=== PATIENT | female | born 1990 | race Caucasian/White ===

== ENCOUNTER 2021-06-15 07:10 | Inpatient (IN) | payer OTHER, SELFPAY ==
[2021-06-15] VITALS (34 sets, daily range): BP systolic 109–160; BP diastolic 56–72; PULSE 63–93; RESP 16; TEMP 36.9–37.5; O2SAT 84–97; BMI 37.5
[2021-06-15] MEDS: Lactated Ringers 1,000 ML 50 ML IV (07:45)
[2021-06-15 08:05] LABS: Absolute Neutrophil Count 8.4 X10^3/uL (2.0-7.7); Basophil# 0.03 X10^3/uL; Basophil% 0.3 % (0-1); Eosinophil# 0.04 X10^3/uL; Eosinophils% 0.4 % (0-5); Hematocrit 37.6 % (37-47); Hemoglobin 12.6 g/dL (12.0-15.0); Lymphocyte % 10.7 % (19-41); Mean Corp Hgb Conc 33.5 g/dL (32-36); Mean Corpuscular Hgb 29.4 pg (27.0-32.0); Mean Corpuscular Volume 87.6 fL (81-99); Mean Platelet Vol. 11.9 fl (6.2-12.0); Monocyte# 0.67 X10^3/uL; Monocyte% 6.5 % (0-10); NRBC Flagged by Analyzer 0 % (0-5); Neutrophil # 8.38 X10^3/uL (2.7-7.7); Neutrophil % 81.1 % (47-70); Platelet Count 199 K/mm3 (150-450); RBC Distribution Width CV 13.8 % (11.6-14.6); RBC Distribution Width SD 43.9 fl (35.1-43.9); Red Blood Count 4.29 M/mm3 (4.2-5.4); White Blood Count 10.3 K/mm3 (4.4-11.0)
[2021-06-15] MEDS: Oxytocin 30 units/NS 500 ml 30 UNITS/500 ML IV.SOLN IV (08:15)
--- NOTE | 2021-06-15 09:24 | PCM.HP.BLA ---
History and Physical Date of Admission: 06/15/21 Chief complaint: Induction of labor postdates History of present illness: 30-year-old G3, P2 at 41 weeks and 0 days with KERMIT: 06/08/2021 by LMP arrives for induction of labor postdates. Denies headache, visual changes, chest pain, shortness of breath, nausea vomiting, right upper quadrant pain. Patient states good movement. Obstetric history: G1: 39 weeks female 02/13/2011 G2: 40-week female 12/16/2015 G3: Current Past medical history: None Medications: vitamin Past surgical history: None Allergies: No known drug allergies Social history: Denies smoking, alcohol use, drug use Family history: Denies history DVT or PE Review of systems: Besides above pertinent positives a full review of systems was performed and found to be negative Physical exam: Vitals: Blood pressure 122/72 pulse 84 SPO2 97% on room air temp 98.4 General: Normal-appearing no acute distress HEENT: Normocephalic atraumatic no cervical of adenopathy Cardiac/respiratory: No use of accessory muscles, nonlabored breathing Abdomen: Soft, nontender, gravid Pelvic exam: Cervical exam 1.5/50/-3 AROM clear blood-tinged fluid Extremities: No peripheral edema normal peripheral pulses Psych: Normal affect normal demeanor nonpressured speech Labs: White blood cell count 10.3 hemoglobin 12.6 MetaGrip 37.6% platelets 199 Assessment plan: 30-year-old G3, P2 at 41 weeks 0 days for induction of labor postdates Admit labor and delivery CEFM Pitocin induction. AROM clear blood-tinged fluid GBS negative Rh- Desires immediate IUD Routine orders Anesthesia see
[2021-06-15] MEDS: Lactated Ringers 500 ML 999 ML IV (11:23)
[2021-06-15] MEDS: fentaNYL-bupivacaine (epidural) 100 ML BAG EPIDURAL (12:20)
--- NOTE | 2021-06-15 13:26 | PCM.PN.OB ---
Subjective Subjective Patient now comfortable with epidural Objective Data Objective Data Vital Signs: Vital Signs Temp Pulse BP Pulse Ox 99.3 F H 77 109/66 94 06/15/21 12:23 06/15/21 13:25 06/15/21 13:25 06/15/21 12:54 Weight: 192 lb Body Mass Index (BMI) 37.5 Intake & Output: Intake and Output for Last 24 Hours 06/13/21 06/14/21 06/15/21 23:59 23:59 23:59 Intake Total 707.50 / 707.50 Balance 707.50 / 707.50 Lab / Micro Data Result Diagrams: 06/15/21 07:45 Labs: Laboratory Results - last 24 hr 06/15/21 07:45: WBC 10.3, RBC 4.29, Hgb 12.6, Hct 37.6, MCV 87.6, MCH 29.4, MCHC 33.5, RDW Std Deviation 43.9, RDW Coeff of Isabel 13.8, Plt Count 199, MPV 11.9, Immature Gran % (Auto) 1.000 H, Neut % (Auto) 81.1 H, Lymph % (Auto) 10.7 L, [place] % (Auto) 6.5, Eos % (Auto) 0.4, Baso % (Auto) 0.3, Absolute Neuts (auto) 8.4 H, Absolute Lymphs (auto) 1.10, Nucleated RBC % 0 06/15/21 07:45: Blood Type O NEGATIVE, Antibody Screen NEGATIVE Micro: Microbiology 06/15/21 07:55 Nasal Secretion SARS-CoV-2 Antigen (Rapid) - Final Physical Exam Const alert, oriented x3, no apparent distress, average body habitus, healthy appearing and well nourished HEENT normocephalic and moist oral mucous membranes Head and Scalp: atraumatic Face and Sinus: normal facial exam Eyes PERRL Neck full ROM Resp normal respiratory effort, no retractions and no use of accessory muscles GI normal to inspection, nondistended, normoactive bowel sounds Extremity normal to inspection, full ROM and no clubbing, cyanosis or edema Psych mental status grossly normal, affect normal, speech normal and activity/motor behavior normal Assessment & Plan (1) Term : PLAN: Patient seen and examined. Now comfortable with epidural. Forebag noted AROM clear fluid. We will continue current management
[2021-06-15] MEDS: Oxytocin 30 units/NS 500 ml 30 UNITS/500 ML IV.SOLN 334 UNITS IV (16:13)
--- NOTE | 2021-06-15 16:21 | EX.PCM.OBRPT ---
Vaginal Delivery Findings Description of Procedure: Normal spontaneous vaginal delivery of a viable female infant, vertex [place]. Head and shoulders delivered with ease. Cord cut and clamped. Baby handed off to patient. Placenta delivered via cord traction and fundal massage. No lacerations noted. EBL 250 cc Apgars 8/9
--- NOTE | 2021-06-15 22:15 | NURSING ---
Report received from Tricia KAPOOR, taking over pt care at this time.
[2021-06-16 00:21] VITALS: BP 100/46; PULSE 81; RESP 18; TEMP 36.5; O2SAT 95
[2021-06-16 04:00] VITALS: BP 100/46; PULSE 86; RESP 16; TEMP 36.4; O2SAT 95
[2021-06-16 07:36] VITALS: BP 110/70; PULSE 58; RESP 16; TEMP 36.6; O2SAT 97
[2021-06-16] MEDS: Ibuprofen 600 MG Tablet PO (08:16)
--- NOTE | 2021-06-16 11:32 | PCM.DC ---
Discharge Instructions Diet Discharge Diet: No restrictions Activity Discharge Activity: Return to Normal Activity, May Drive and May Shower May resume sexual activity in: 4-6 weeks Weight Bearing Status: Weight bearing as tolerated Dressing / Incision Call your doctor if your incision/area has: Continuous Slow Oozing and Foul Smelling Discharge Call your doctor if you observe: Fever of 101 or Higher, Shortness of breath and Chest pain Follow Up Care Please Follow Up With: Faustino Emerson MD When: 2-week telehealth visit, 6-week visit Test Results: Test results from this visit will be discussed in further detail at your follow-up appointment, if applicable. Discharge Plan Admission Admit Date/Time: 06/15/21 07:10 Attending Provider: Faustino Emerson Discharge Orders/Prescriptions Prescriptions: No Action Prenatabs FA 1 TABLET tablet 1 tab PO DAILY RF: 0 Disposition Discharge Orders: Discharge Patient (Routine); Ordered 06/16/21 Ordered By: Dr. Faustino Emerson
--- NOTE | 2021-06-16 11:33 | PN.OBGYN_ITS ---
Subjective Subjective No overnight complaints. Pain well controlled. Objective Data Objective Data Vital Signs: Vital Signs Temp Pulse Resp BP Pulse Ox 97.8 F 58 L 16 110/70 97 06/16/21 07:36 06/16/21 07:36 06/16/21 07:36 06/16/21 07:36 06/16/21 07:36 Oxygen Delivery Method Room Air Weight: 192 lb Body Mass Index (BMI) 37.5 Intake & Output: Intake and Output for Last 24 Hours 06/14/21 06/15/21 06/16/21 23:59 23:59 23:59 Intake Total 2063.33 / 2063.33 Output Total 350 / 350 Balance 1713.33 / 1713.33 Lab / Micro Data Result Diagrams: 06/15/21 07:45 Micro: Microbiology 06/15/21 07:55 Nasal Secretion SARS-CoV-2 Antigen (Rapid) - Final Physical Exam Const alert, oriented x3, no apparent distress, average body habitus, healthy appearing and well nourished HEENT normocephalic and moist oral mucous membranes Head and Scalp: atraumatic Face and Sinus: normal facial exam Eyes PERRL Neck full ROM Resp normal respiratory effort, no retractions and no use of accessory muscles Extremity normal to inspection, full ROM and no clubbing, cyanosis or edema Psych mental status grossly normal, affect normal, speech normal and activity/motor behavior normal Assessment & Plan (1) (spontaneous vaginal delivery): PLAN: day 1. Breast-feeding. Pain well controlled. Okay to discharge home today if okay with admissions gate attendant
[2021-06-16 11:52] VITALS: BP 112/61; PULSE 58; RESP 16; TEMP 36.3; O2SAT 98
[2021-06-16 16:27] VITALS: BP 122/70; PULSE 71; RESP 16; TEMP 36.6; O2SAT 98
== END 2021-06-16 17:55 | disposition home or self-care (01) | DRG 807 ==
PROVIDERS: Admitting Provider Obstetrics & Gynecology; Visit Provider Obstetrics & Gynecology
DX: O48.0 Post-term pregnancy (principal); Z37.0 Single live birth; Z3A.41 41 weeks gestation of pregnancy
CPT/HCPCS: 59025; 59050; 85025; 86850; 86900; 86901; 87426; 99218; J7120; G0378